=== PATIENT | male | born 1985 | race Caucasian/White ===

== ENCOUNTER 2024-04-06 10:56 | Emergency (ER) | payer OTHER ==
[2024-04-06] MEDS ORDERED: LIDOCAINE 1% 20 ML MDV ONE (11:06)
[2024-04-06] MEDS ORDERED: AMOX/K CLAV 875 MG TAB ONE (11:06)
[2024-04-06] MEDS ORDERED: TDAP (DIPHTH,PERTUSS(ACELL),TET VAC) 0.5 ML VIAL IMVAC ONE (11:07)
[2024-04-06] MEDS ORDERED: IBUPROFEN 400 MG TAB ONE (11:07)
[2024-04-06] MEDS ORDERED: LIDOCAINE 2% W/EPI 1:200,000 MPF 20 ML VIAL IM ONE (11:51)
--- NOTE | 2024-04-06 12:06 | EDPHYS ---
Physician Documentation [facility] Name: Rodríguez Diaz Age: 38 yrs Sex: Male : 1985 Arrival Date: 04/06/2024 Time: 10:56 Bed 6 Private MD: JYOTI Physician Lars Clifton HPI: 04/06 11:01 This 38 yrs old Male presents to ER via Unassigned with complaints of wayne Laceration To Leg. 11:01 The patient has a laceration related to: doing yard work, CHAIN SAW. The laceration(s) wayne is(are) located on the left knee. Onset: The symptoms/episode began/occurred just prior to arrival. Associated signs and symptoms: The patient has no apparent associated signs or symptoms. The patient has not experienced similar symptoms in the past. Historical: - Allergies: 11: No Known Allergies; ll1 - Home Meds: 11: None [Active]; ll1 - PMHx: 11: None; ll1 - PSHx: 11: None; ll1 - Immunization history:: Last tetanus immunization: unknown. - Infectious Disease History:: Denies. - Social history:: Smoking status: Patient denies any tobacco usage or history of. ROS: 11:04 Constitutional: Negative for fever, chills, and weight loss, Eyes: Negative for injury, wyane pain, redness, and discharge, ENT: Negative for injury, pain, and discharge, Neck: Negative for injury, pain, and swelling, Cardiovascular: Negative for chest pain, palpitations, and edema, Respiratory: Negative for shortness of breath, cough, wheezing, and pleuritic chest pain, Abdomen/GI: Negative for abdominal pain, nausea, vomiting, diarrhea, and constipation, Back: Negative for injury and pain, Neuro: Negative for headache, weakness, numbness, tingling, and seizure, Psych: Negative for depression, anxiety, suicide ideation, homicidal ideation, and hallucinations, Allergy/Immunology: Negative for hives, rash, and allergies, Endocrine: Negative for neck swelling, polydipsia, polyuria, polyphagia, and marked weight changes, Hematologic/Lymphatic: Negative for swollen nodes, abnormal bleeding, and unusual bruising, 11:04 MS/extremity: Positive for injury or acute deformity, laceration, of the left leg, Exam: 11:04 Constitutional: This is a well developed, well nourished patient who is awake, alert, wayne and in no acute distress. Head/Face: Normocephalic, atraumatic. Eyes: Pupils equal round and reactive to light, extra-ocular motions intact. Lids and lashes normal. Conjunctiva and sclera are non-icteric and not injected. Cornea within normal limits. Periorbital areas with no swelling, redness, or edema. ENT: Nares patent. No nasal discharge, no septal abnormalities noted. Tympanic membranes are normal and external auditory canals are clear. Oropharynx with no redness, swelling, or masses, exudates, or evidence of obstruction, uvula midline. Mucous membranes moist. Neck: Trachea midline, no thyromegaly or masses palpated, and no cervical lymphadenopathy. Supple, full range of motion without nuchal rigidity, or vertebral point tenderness. No Meningismus. Chest/axilla: Normal chest wall appearance and motion. Nontender with no deformity. No lesions are appreciated. Cardiovascular: Regular rate and rhythm with a normal S1 and S2. No gallops, murmurs, or rubs. Normal PMI, no JVD. No pulse deficits. Respiratory: Lungs have equal breath sounds bilaterally, clear to auscultation and percussion. No rales, rhonchi or wheezes noted. No increased work of breathing, no retractions or nasal flaring. Abdomen/GI: Soft, non-tender, with normal bowel sounds. No distension or tympany. No guarding or rebound. No evidence of tenderness throughout. Back: No spinal tenderness. No costovertebral tenderness. Full range of motion. Male : Normal genitalia with no discharge or lesions. Skin: Warm, dry with normal turgor. Normal color with no rashes, no lesions, and no evidence of cellulitis. Neuro: Awake and alert, GCS 15, oriented to person, place, time, and situation. Cranial nerves II-XII grossly intact. Motor strength 5/5 in all extremities. Sensory grossly intact. Cerebellar exam normal. Normal gait. Psych: Awake, alert, with orientation to person, place and time. Behavior, mood, and affect are within normal limits. 11:04 Musculoskeletal/extremity: ROM: full active range of motion, full passive range of motion, Pulses: are normal with no appreciated deficits, Sensation intact. Compartment Syndrome exam of affected extremity: is normal. Vital Signs: 10:57 BP 157 / 98; Resp 18; Temp 97.9(O); Pulse Ox 95% ; Weight 106.59 kg; Height 5 ft. 7 in. ll1 ; 10:57 Body Mass Index 36.81 (106.59 kg, 170.18 cm) ll1 Laceration: 11:05 Wound Repair of 4cm ( 1.6in ) subcutaneous laceration to left leg and left knee. wayne Irregularly shaped.. Distal neuro/vascular/tendon intact. Anesthesia: Wound infiltrated with 10 mls of 1% lidocaine w/ Epi. Wound prep: Moderate cleansing by me. Skin closed with 4 4-0 Prolene using interrupted sutures and sterile technique. Dressed with Neosporin. Patient tolerated well. MDM: 10:57 Medical Screening Exam initiated wayne 11:06 Differential diagnosis: superficial laceration, tendon injury, vascular injury, closed wayne fracture, contusion, abrasion, tendonitis. Data reviewed: vital signs, nurses notes, radiologic studies, plain films. Consideration of Admission/Observation Escalation of care including admission/observation considered. I considered the following discharge prescriptions or medication management in the emergency department Medications were administered in the Emergency Department. See MAR. Independent interpretation of the following test(s) in the Emergency Department X-Ray: My interpretation is X RAY, NO FX ,NO FB. Test considered but Not performed: Labs: NO CBC , NO COMP MET. Historians other than the Patient: PT WELL INFORMED. Care significantly affected by the following chronic conditions: NONE. Counseling: I had a detailed discussion with the patient and/or guardian regarding the historical points, exam findings, and any diagnostic results supporting the discharge/admit diagnosis, radiology results, the need for outpatient follow up, for definitive care, a family practitioner. 04/06 11:01 Order name: Knee Left 3 View XRAY [facility] 04/06 11:00 Order name: Dressing - Wound; Complete Time: 11:19 [facility] 04/06 11:00 Order name: Gloves, Sterile; Complete Time: 11:12 [facility] 04/06 11:00 Order name: Prolene, Sutures; Complete Time: 11:18 [facility] 04/06 11:00 Order name: Setup Suture Tray; Complete Time: 11:11 [facility] Administered Medications: 11:18 Drug: Amoxicillin-Clavulanate PO 875 mg PO once Route: PO; cm10 11:45 Follow up: Response: No adverse reaction cm10 11:18 Drug: Boostrix Tdap IM 0.5 ml IM once; as a single dose Route: IM; Site: left deltoid; cm10 11:45 Follow up: Response: (VIS) Vaccine information sheet provided today. Questions and/or cm10 concerns addressed. VIS edition date: Oct 25, 2020.; No adverse reaction 11:18 Drug: Ibuprofen PO 800 mg PO once Route: PO; cm10 11:45 Follow up: Response: No adverse reaction cm10 11:45 Drug: Lidocaine-Epinephrine Infiltration -1%: (1:100,000) 10 ml 20 ml Infiltration cm10 once; to bedside {Note: Given by provider..} Volume: 20 ml; Route: Infiltration; Disposition Summary: 04/06/24 12:06 Discharge Ordered Notes: Location: Home wayne Problem: new wayne Symptoms: have improved wayne Condition: Stable wayne Diagnosis - Laceration without foreign body of lower leg wayne Followup: wayne - With: Private Physician - When: 7 - 10 days - Reason: Recheck today's complaints, Staple/Suture removal, Re-evaluation by your physician Followup: wayne - With: Casper Franz MD - When: 2 - 3 days - Reason: Recheck today's complaints, Re-evaluation by your physician Discharge Instructions: - Discharge Summary Sheet wayne - Laceration Care, Adult wayne - Laceration Care, Adult, [id number] [facility] Forms: - Medication Reconciliation Form wayne - Antibiotic Education wayen - Prescription Opioid Use [facility] - Patient Portal Instructions [facility] - Leadership Thank You Letter [facility] Prescriptions: - Centany 2 % Topical ointment - apply 1 application TOPICAL route 3 times per day; 30 gram; Refills: 0, Product [facility] Selection Permitted - Augmentin 875-125 mg Oral tablet - take 1 tablet ORAL route every 12 hours for 7 days; 14 tablet; Refills: 0, [facility] Product Selection Permitted - Diclofenac Sodium 75 mg Oral tablet, delayed release (enteric coated) - take 1 tablet ORAL route 2 times per day; 20 tablet; Refills: 0, Product [facility] Selection Permitted Signatures: Dispatcher [employer] Lars Richardson MD MD cha Lewis, Lynsay, RN RN ll1 Stormy Godinez RN RN cm10 Corrections: (The following items were deleted from the chart) 11:01 11:01 Knee Left 3 View+[id number].[email or web address] ordered. EDMS EDMS
--- NOTE | 2024-04-06 12:06 | ER ---
Nurse's Notes [facility] Name: Rodríguez Diaz Age: 38 yrs Sex: Male : 1985 Arrival Date: 04/06/2024 Time: 10:56 Bed 6 Private MD: Diagnosis: Laceration without foreign body of lower leg Presentation: 04/06 10:57 Chief complaint: Patient states: laceration to L lower extremity that occurred 30 ll1 minutes by chain saw. No active bleeding noted. Coronavirus screen: Client denies travel out of the [place] in the last 14 days. Ebola Screen: Patient denies exposure to infectious person. Patient denies travel to an Ebola-affected area in the 21 days before illness onset. Complicating Factors: There are no complicating factors for this patient. Initial Sepsis Screen: Does the patient meet any 2 criteria? No. Patient's initial sepsis screen is negative. Does the patient have a suspected source of infection? No. Patient's initial sepsis screen is negative. Risk Assessment: Do you want to hurt yourself or someone else? Patient reports no desire to harm self or others. Onset of symptoms was April 06, 2024. 10:57 Method Of Arrival: Ambulatory ll1 10:57 Acuity: ALEC 3 ll1 Triage Assessment: 10:58 General: Appears uncomfortable, Behavior is calm, cooperative, appropriate for age. ll1 Pain: Denies pain. Derm: Reports laceration L leg from chainsaw. No active bleeding. Historical: - Allergies: 11:01 No Known Allergies; ll1 - Home Meds: 11:01 None [Active]; ll1 - PMHx: 11: None; ll1 - PSHx: 11:01 None; ll1 - Immunization history:: Last tetanus immunization: unknown. - Infectious Disease History:: Denies. - Social history:: Smoking status: Patient denies any tobacco usage or history of. Screenin:19 [facility] ED Fall Risk Assessment (Adult) History of falling in the last 3 months, cm10 including since admission No falls in past 3 months (0 pts) Confusion or Disorientation No (0 pts) Intoxicated or Sedated No (0 pts) Impaired Gait No (0 pts) Mobility Assist Device Used No (0 pt) Altered Elimination No (0 pt) Score/Fall Risk Level 0 - 2 = Low Risk Oriented to surroundings, Maintained a safe environment, Hourly rounding (assess needs \T\ fall precautionary measures) done. Abuse screen: Denies threats or abuse. Denies injuries from another. Nutritional screening: No deficits noted. Tuberculosis screening: No symptoms or risk factors identified. Assessment: 11:21 General: Appears in no apparent distress. uncomfortable, Behavior is calm, cooperative, cm10 appropriate for age. Pain: Complains of pain in left knee Pain does not radiate. Pain began 30 min ago. Neuro: No deficits noted. Level of Consciousness is awake, alert, obeys commands, Oriented to person, place, time, situation, Appropriate for age. Respiratory: No deficits noted. Airway is patent Respiratory effort is even, unlabored, Respiratory pattern is regular, symmetrical. Musculoskeletal: Range of motion: intact in all extremities. Injury Description: Laceration sustained to left knee is clean, 2.6 to 7.5 cm long, not bleeding. 12:26 Reassessment: Patient appears in no apparent distress at this time. Patient and/or cm10 family updated on plan of care and expected duration. Pain level reassessed. Patient is alert, oriented x 3, equal unlabored respirations, skin warm/dry/pink. Vital Signs: 10:57 BP 157 / 98; Resp 18; Temp 97.9(O); Pulse Ox 95% ; Weight 106.59 kg; Height 5 ft. 7 in. ll1 ; 10:57 Body Mass Index 36.81 (106.59 kg, 170.18 cm) ll1 ED Course: 10:57 Patient arrived in ED. ll1 10:57 Lars Clifton MD is Attending Physician. [facility] 10:58 Arm band placed on Patient placed in an exam room, on a stretcher. ll1 11:01 Triage completed. ll1 11:03 Stormy Godinez, ARNIE is Primary Nurse. cm10 11:18 Knee Left 3 View XRAY In Process Unspecified. EDMS 11:20 Patient has correct armband on for positive identification. Bed in low position. Call cm10 light in reach. Side rails up X 1. Provided Education on: ER process and procedures.. Cardiac monitoring not applicable on this patient. 11:20 Assist provider with laceration repair on left knee that was between 2.6 to 7.5 cm cm10 using sutures. Set up tray. Performed by Lars Clifton MD Patient tolerated well. Wound care: to laceration located on left knee was cleaned with. 12:05 Casper Franz MD is Referral Physician. [facility] 12:26 Patient did not have IV access during this emergency room visit. Dressings: cm10 non-adherent dressing x 1 left knee. Administered Medications: 11:18 Drug: Amoxicillin-Clavulanate PO 875 mg PO once Route: PO; cm10 11:45 Follow up: Response: No adverse reaction cm10 11:18 Drug: Boostrix Tdap IM 0.5 ml IM once; as a single dose Route: IM; Site: left deltoid; cm10 11:45 Follow up: Response: (VIS) Vaccine information sheet provided today. Questions and/or cm10 concerns addressed. VIS edition date: Oct 25, 2020.; No adverse reaction 11:18 Drug: Ibuprofen PO 800 mg PO once Route: PO; cm10 11:45 Follow up: Response: No adverse reaction cm10 11:45 Drug: Lidocaine-Epinephrine Infiltration -1%: (1:100,000) 10 ml 20 ml Infiltration cm10 once; to bedside {Note: Given by provider..} Volume: 20 ml; Route: Infiltration; Medication: 11:19 Vaccine Information Statement (VIS) provided today. Questions and/or concerns cm10 addressed. VIS edition date: October 25, 2020. Outcome: 12:06 Discharge ordered by . [facility] 12:26 Discharged to home ambulatory, cm10 12:26 Condition: good 12:26 Discharge instructions given to patient, Instructed on discharge instructions, follow up and referral plans. medication usage, wound care, Demonstrated understanding of instructions, follow-up care, medications, wound care, Prescriptions given X 3, 12:26 Patient left the ED. cm10 Signatures: Dispatcher [employer] EDLars Guillen MD MD cha Lewis, Lynsay, RN RN ll1 Stormy Godinez RN RN cm10
--- NOTE | 2024-04-06 12:28 | RAD REPORT ---
EXAMINATION: XR LEFT KNEE CLINICAL INDICATION: PAIN TECHNIQUE: Multiple projections of the left knee were obtained. COMPARISON: No prior exam. FINDINGS: No bone or joint abnormality seen. Soft tissue laceration seen superior to the level of th e patella. No radiopaque foreign body.
[2024-04-07 02:55] VITALS: BP 157/98; TEMP 97.9; O2SAT 95
== END 2024-04-06 12:26 | disposition home or self-care (01) ==
LOC: ER 10:56
DX: S81.012A Laceration without foreign body, left knee, initial encounter (principal)
CPT/HCPCS: 73562; 96372; 99284; 12002; J2003